=== PATIENT | female | born 1945 | race Asian ===

== ENCOUNTER 2024-02-16 17:17 | Inpatient (IN) | payer MEDICARE, OTHER ==
[~2024-02-16] VITALS: Ht 149.9 cm; Wt 47.6 kg
[2024-02-16 19:30] VITALS: BP 128/77; PULSE 86; RESP 18; TEMP 98.4; O2SAT 98
[2024-02-16] MEDS ORDERED: DEXTROSE 50%-WATER 25 GM/50 ML SYRINGE IVP PRN (20:15)
[2024-02-16] MEDS ORDERED: ALBUTEROL SULFATE HFA 90 MCG/PUFF 8 GM INHALER IH PRN (20:15)
[2024-02-16] MEDS: DOCUSATE SODIUM 100 MG CAPSULE PO SCH (21:00)
[2024-02-16] MEDS: ETHYL ALCOHOL 62% ANTISEPTIC NASAL SANITIZER 0.6 ML AMPUL NASAL SCH (21:42)
[2024-02-16] MEDS: MELATONIN 3 MG TABLET PO SCH (21:43)
[2024-02-16] MEDS: GuaiFENesin SR 600 MG ER TABLET PO SCH (21:43)
[2024-02-16] MEDS: CALCIUM CIT/VITAMIN D3 200 MG-250 UNITS[6.25MCG] TABLET PO SCH (21:43)
[2024-02-16] MEDS: SODIUM CHLORIDE 1 GM TABLET PO SCH (21:43)
[2024-02-16] MEDS: OXYGEN THERAPY IH SCH (23:21)
[2024-02-17] VITALS (8 sets, daily range): BP systolic 104–119; BP diastolic 61–75; PULSE 47–105; RESP 15–18; TEMP 98.3–98.4; O2SAT 94–98
[2024-02-17 00:50] LABS: GLUCOMETER DEV NAME(LOC) 2WR.1D; GLUCOSE,POINT OF CARE 160 MG/DL (70-110)
[2024-02-17 07:35] LABS: BASOPHILS % (AUTO) 1.2 % (0.0-2.0); EOSINOPHILS % (AUTO) 1.6 % (1.0-6.0); HEMATOCRIT 33.9 % (36-46); HEMOGLOBIN 11.2 g/dL (12.0-16.0); LYMPHOCYTES % (AUTO) 9.9 % (22.0-44.0); MEAN CORPUSCULAR HEMOGLOBIN 30.2 pg (26.0-34.0); MEAN CORPUSCULAR HGB CONC 33.1 G/dL (31.0-37.0); MEAN CORPUSCULAR VOLUME 91 fL (80-100); MONOCYTES # (AUTO) 0.8 K/uL (0.1-1.0); MONOCYTES % (AUTO) 8.3 % (2.0-9.0); PLATELET COUNT (AUTO) 354 K/uL (150-450); RED BLOOD CELL COUNT(AUTO) 3.72 MIL/uL (4.00-5.20); RED CELL DISTRIBUTION WIDTH 14.5 % (11.5-14.5); WHITE BLOOD COUNT (AUTO) 10.1 K/uL (4.5-11.0)
[2024-02-17 07:48] LABS: ALANINE AMINOTRANSFERASE 15 U/L (12-78); ALBUMIN 2.9 g/dL (3.4-5.0); ALKALINE PHOSPHATASE 62 U/L (46-116); ANION GAP 6 mmol/L (8-16); ASPARTATE AMINOTRANSFERASE 19 U/L (15-37); BILIRUBIN,TOTAL 0.5 mg/dL (0.1-1.0); CALCIUM, TOTAL 9.1 mg/dL (8.8-10.5); CARBON DIOXIDE 33 mmol/L (22-29); CHLORIDE 90 mmol/L (98-107); GLOMERULAR FILTR. RATE CALC > 60 mL/min (>60); GLUCOSE,RANDOM 111 mg/dL (70-110); POTASSIUM 3.9 mmol/L (3.5-5.1); SODIUM SERUM 128 mmol/L (136-145); TOTAL PROTEIN, SERUM 6.7 g/dL (6.4-8.2); UREA NITROGEN, BLOOD 14 mg/dL (7-18)
[2024-02-17 07:51] LABS: GLUCOMETER DEV NAME(LOC) 2WR.2B; GLUCOSE,POINT OF CARE 123 MG/DL (70-110)
[2024-02-17] MEDS: MetFORMIN HCL 500 MG TABLET PO SCH (08:17)
[2024-02-17] MEDS: ASPIRIN 81 MG CHEWABLE TABLET PO SCH (08:18)
[2024-02-17] MEDS: FUROSEMIDE 20 MG TABLET PO SCH (08:19)
[2024-02-17] MEDS: ATORVASTATIN CALCIUM 10 MG TABLET PO SCH (08:19)
[2024-02-17] MEDS: AmLODIPine BESYLATE 5 MG TABLET PO SCH (08:20)
[2024-02-17] MEDS: ENOXAPARIN SODIUM 40 MG/0.4 ML PF SYRINGE SQ SCH (08:21)
[2024-02-17] MEDS: PNEUMOCOCCAL VACCINE POLYVALENT 0.5 ML SYRINGE [PPSV23] IM. ONE (08:24)
[2024-02-17] MEDS: VIT A,C & E/LUTEIN/MINERALS TABLET PO SCH (08:39)
[2024-02-17] MEDS: LOSARTAN POTASSIUM 50 MG TABLET PO SCH (09:00)
[2024-02-17] MEDS: ATENOLOL 50 MG TABLET PO SCH (09:00)
[2024-02-17] MEDS ORDERED: MIDODRINE HCL 2.5 MG TABLET PO PRN (12:00)
[2024-02-17 13:20] LABS: GLUCOMETER DEV NAME(LOC) 2WR.2B; GLUCOSE,POINT OF CARE 94 MG/DL (70-110)
[2024-02-17] MEDS: ALBUTEROL SULFATE/IPRATROPIUM 100-20 MCG/SPRAY 4 GM INHALER IH SCH (15:16)
[2024-02-17 18:45] LABS: GLUCOMETER DEV NAME(LOC) 2WR.2B; GLUCOSE,POINT OF CARE 115 MG/DL (70-110)
[2024-02-17] MEDS: BUDESONIDE 0.5 MG/2 ML NEB SOLUTION NEB SCH (20:39)
[2024-02-17] MEDS: GuaiFENesin SR 600 MG ER TABLET PO SCH (21:18)
[2024-02-17 23:06] LABS: GLUCOMETER DEV NAME(LOC) 2WR.2B; GLUCOSE,POINT OF CARE 118 MG/DL (70-110)
[2024-02-18 06:51] LABS: GLUCOMETER DEV NAME(LOC) 2WR.1D; GLUCOSE,POINT OF CARE 129 MG/DL (70-110)
[2024-02-18 08:05] VITALS: BP 123/76; PULSE 104; RESP 18; TEMP 98; O2SAT 92
[2024-02-18 09:09] VITALS: PULSE 99; RESP 16; O2SAT 98
[2024-02-18 09:10] VITALS: PULSE 99; RESP 16; O2SAT 98
[2024-02-18 09:42] LABS: ANION GAP 2 mmol/L (8-16); CALCIUM, TOTAL 9.5 mg/dL (8.8-10.5); CARBON DIOXIDE 35 mmol/L (22-29); CHLORIDE 93 mmol/L (98-107); CREATININE 0.47 mg/dL (0.60-1.30); GLOMERULAR FILTR. RATE CALC > 60 mL/min (>60); GLUCOSE,RANDOM 189 mg/dL (70-110); POTASSIUM 3.9 mmol/L (3.5-5.1); SODIUM SERUM 130 mmol/L (136-145); UREA NITROGEN, BLOOD 12 mg/dL (7-18)
[2024-02-18 12:10] LABS: GLUCOMETER DEV NAME(LOC) 2WR.1D; GLUCOSE,POINT OF CARE 103 MG/DL (70-110)
[2024-02-18 12:30] VITALS: BP 113/70; PULSE 88; RESP 18; TEMP 98.6; O2SAT 98
[2024-02-18 17:20] LABS: GLUCOMETER DEV NAME(LOC) 2WR.1D; GLUCOSE,POINT OF CARE 109 MG/DL (70-110)
[2024-02-18 21:00] VITALS: BP 122/73; PULSE 91; RESP 18; TEMP 98.1; O2SAT 95
[2024-02-18 22:30] VITALS: PULSE 94; RESP 16; O2SAT 96
[2024-02-18 22:30] LABS: GLUCOMETER DEV NAME(LOC) 2WR.1D; GLUCOSE,POINT OF CARE 105 MG/DL (70-110)
[2024-02-19] VITALS (11 sets, daily range): BP systolic 99–129; BP diastolic 60–78; PULSE 84–112; RESP 16–18; TEMP 98.2–98.6; O2SAT 92–98
[2024-02-19 07:16] LABS: GLUCOMETER DEV NAME(LOC) 2WR.2B; GLUCOSE,POINT OF CARE 108 MG/DL (70-110)
[2024-02-19 12:46] LABS: APPEARANCE,URINE TURBID (CLEAR); BILIRUBIN,URINE NEGATIVE (NEGATIVE); COLOR,URINE YELLOW (YELLOW); GLUCOSE, URINE (UA) NEGATIVE (NEGATIVE); KETONES,URINE 40-60 mg/dL (NEGATIVE); LEUKOCYTE ESTERASE ,URINE LARGE (NEGATIVE); NITRATE,URINE NEGATIVE (NEGATIVE); OCCULT BLOOD,URINE SMALL (NEGATIVE); PH,URINE 6.5 (5.0-8.0); PROTEIN,URINE 30-70 mg/dL (NEGATIVE); SPECIFIC GRAVITIY, URINE 1.022 (1.003-1.030); UROBILINOGEN,URINE <=1.0 mg/dL (<=1.0)
[2024-02-19 13:07] LABS: BACTERIA,URINE Many /HPF (None Seen); SQUAMOUS EPITHELIAL CELL,UR Moderate /LPF (None Seen); WBC,URINE >100 /HPF (0-5)
[2024-02-19 17:21] LABS: GLUCOMETER DEV NAME(LOC) 2WR.2B; GLUCOSE,POINT OF CARE 103 MG/DL (70-110)
[2024-02-19] MEDS ORDERED: ALBUTEROL SULFATE 2.5 MG/0.5 ML NEB SOLUTION NEB SCH (23:00)
[2024-02-19] MEDS ORDERED: IPRATROPIUM BROMIDE 0.5 MG/2.5 ML NEB SOLUTION NEB SCH (23:00)
[2024-02-20 01:00] VITALS: O2SAT 96
[2024-02-20 06:56] LABS: GLUCOMETER DEV NAME(LOC) 2WR.1D; GLUCOSE,POINT OF CARE 124 MG/DL (70-110)
[2024-02-20 08:00] VITALS: BP 137/72; PULSE 106; RESP 18; TEMP 98.6; O2SAT 94
[2024-02-20] MEDS: LOSARTAN POTASSIUM 50 MG TABLET PO SCH (08:39)
[2024-02-20 08:56] VITALS: PULSE 98; RESP 18; O2SAT 95
[2024-02-20 09:11] VITALS: PULSE 99; RESP 18; O2SAT 97
[2024-02-20 17:11] LABS: GLUCOMETER DEV NAME(LOC) 2WR.1D; GLUCOSE,POINT OF CARE 136 MG/DL (70-110)
[2024-02-20] MEDS ORDERED: 0.9% SODIUM CHLORIDE 5 ML NEB SOLUTION NEB ONE (19:44)
[2024-02-20 19:45] VITALS: PULSE 105; RESP 22; O2SAT 94
[2024-02-20 20:00] VITALS: BP 105/56; PULSE 103; PULSE 106; RESP 18; RESP 20; TEMP 98; O2SAT 95; O2SAT 98
[2024-02-21] VITALS (7 sets, daily range): BP systolic 118–121; BP diastolic 65–71; PULSE 93–104; RESP 16–20; TEMP 97.8–99.1; O2SAT 93–96
[2024-02-21 07:11] LABS: GLUCOMETER DEV NAME(LOC) 2WR.2B; GLUCOSE,POINT OF CARE 151 MG/DL (70-110)
[2024-02-21] MEDS: INSULIN LISPRO 100 UNITS/ML SQ PRN (08:26)
[2024-02-21 12:14] LABS: COVID AG,FIA SOURCE NASAL SWAB
[2024-02-21 12:52] LABS: SARS-COV2 (COVID) ANTIGEN,FIA Negative (Negative)
[2024-02-21 17:15] LABS: GLUCOMETER DEV NAME(LOC) 2WR.1D; GLUCOSE,POINT OF CARE 150 MG/DL (70-110)
[2024-02-21] MEDS: NITROFURANTOIN MONOHYD/M-CRYST 100 MG CAPSULE [MACROBID] PO SCH (20:54)
[2024-02-21] MEDS: ACETAMINOPHEN 325 MG TABLET PO PRN (20:55)
[2024-02-22] VITALS (8 sets, daily range): BP systolic 104–138; BP diastolic 60–80; PULSE 88–104; RESP 18–20; TEMP 97.5–98.2; O2SAT 93–98
[2024-02-22 07:05] LABS: GLUCOMETER DEV NAME(LOC) 2WR.2B; GLUCOSE,POINT OF CARE 115 MG/DL (70-110)
[2024-02-22 09:28] LABS: BASOPHILS % (AUTO) 0.2 % (0.0-2.0); EOSINOPHILS % (AUTO) 0.8 % (1.0-6.0); HEMATOCRIT 29.4 % (36-46); HEMOGLOBIN 9.8 g/dL (12.0-16.0); LYMPHOCYTES # (AUTO) 0.7 K/uL (1.0-4.8); LYMPHOCYTES % (AUTO) 5.8 % (22.0-44.0); MEAN CORPUSCULAR HEMOGLOBIN 30.3 pg (26.0-34.0); MEAN CORPUSCULAR HGB CONC 33.3 G/dL (31.0-37.0); MEAN CORPUSCULAR VOLUME 91 fL (80-100); MONOCYTES # (AUTO) 0.7 K/uL (0.1-1.0); MONOCYTES % (AUTO) 6.2 % (2.0-9.0); PLATELET COUNT (AUTO) 273 K/uL (150-450); RED BLOOD CELL COUNT(AUTO) 3.23 MIL/uL (4.00-5.20); RED CELL DISTRIBUTION WIDTH 15.1 % (11.5-14.5); WHITE BLOOD COUNT (AUTO) 11.5 K/uL (4.5-11.0)
[2024-02-22 09:46] LABS: ANION GAP 8 mmol/L (8-16); CALCIUM, TOTAL 9.1 mg/dL (8.8-10.5); CARBON DIOXIDE 30 mmol/L (22-29); CHLORIDE 91 mmol/L (98-107); CREATININE 0.54 mg/dL (0.60-1.30); GLOMERULAR FILTR. RATE CALC > 60 mL/min (>60); GLUCOSE,RANDOM 123 mg/dL (70-110); POTASSIUM 3.6 mmol/L (3.5-5.1); SODIUM SERUM 129 mmol/L (136-145); UREA NITROGEN, BLOOD 14 mg/dL (7-18)
[2024-02-22 11:00] LABS: COVID AG,FIA SOURCE NASAL SWAB
[2024-02-22 11:51] LABS: SARS-COV2 (COVID) ANTIGEN,FIA Negative (Negative)
[2024-02-22 20:01] LABS: GLUCOMETER DEV NAME(LOC) 2WR.2B; GLUCOSE,POINT OF CARE 123 MG/DL (70-110)
[2024-02-23] VITALS (7 sets, daily range): BP systolic 134–136; BP diastolic 81–98; PULSE 96–113; RESP 18–22; TEMP 98.1; O2SAT 90–98
[2024-02-23 07:06] LABS: GLUCOMETER DEV NAME(LOC) 2WR.2B; GLUCOSE,POINT OF CARE 127 MG/DL (70-110)
[2024-02-23 18:51] LABS: GLUCOMETER DEV NAME(LOC) 2WR.2B; GLUCOSE,POINT OF CARE 116 MG/DL (70-110)
[2024-02-24] VITALS (12 sets, daily range): BP systolic 117–151; BP diastolic 71–93; PULSE 95–113; RESP 18–20; TEMP 97.9–98.2; O2SAT 95–100
[2024-02-24 06:40] LABS: GLUCOMETER DEV NAME(LOC) 2WR.2B; GLUCOSE,POINT OF CARE 121 MG/DL (70-110)
[2024-02-24] MEDS: FUROSEMIDE 20 MG TABLET PO SCH (11:18)
[2024-02-24 17:20] LABS: GLUCOMETER DEV NAME(LOC) 2WR.2B; GLUCOSE,POINT OF CARE 129 MG/DL (70-110)
[2024-02-24] MEDS: HYDROCODONE/CHLORPHEN POLIS 10-8 MG/5 ML ORAL.SYG PO SCH (20:46)
[2024-02-25] VITALS (8 sets, daily range): BP systolic 118–135; BP diastolic 70–73; PULSE 102–107; RESP 18–20; TEMP 97.2–97.8; O2SAT 94–98
[2024-02-25 06:51] LABS: GLUCOMETER DEV NAME(LOC) 2WR.1D; GLUCOSE,POINT OF CARE 122 MG/DL (70-110)
[2024-02-25 18:36] LABS: GLUCOMETER DEV NAME(LOC) 2WR.1D; GLUCOSE,POINT OF CARE 117 MG/DL (70-110)
[2024-02-26] VITALS (9 sets, daily range): BP systolic 135–148; BP diastolic 80–85; PULSE 101–108; RESP 18–20; TEMP 98.2–98.6; O2SAT 92–98
[2024-02-26 06:51] LABS: GLUCOMETER DEV NAME(LOC) 2WR.1D; GLUCOSE,POINT OF CARE 138 MG/DL (70-110)
[2024-02-26] MEDS: MULTIVITAMINS WITH MINERALS, THERAPEUTIC TABLET PO SCH (07:53)
[2024-02-26] MEDS: ASCORBIC ACID 500 MG TABLET PO SCH (07:54)
[2024-02-26] MEDS: ZINC SULFATE 220 MG CAPSULE PO SCH (07:54)
[2024-02-26] MEDS: LIDOCAINE 5% TRANSDERMAL PATCH TD SCH (10:54)
[2024-02-26 17:30] LABS: GLUCOMETER DEV NAME(LOC) 2WR.2B; GLUCOSE,POINT OF CARE 102 MG/DL (70-110)
[2024-02-26] MEDS: DOCUSATE SODIUM 100 MG CAPSULE PO PRN (20:09)
[2024-02-26] MEDS: -LIDODERM PATCH NOTE- MISC SCH (20:10)
[2024-02-27] VITALS (11 sets, daily range): BP systolic 134–145; BP diastolic 76–80; PULSE 100–110; RESP 18–20; TEMP 97.8–98.1; O2SAT 95–99
[2024-02-27 07:15] LABS: GLUCOMETER DEV NAME(LOC) 2WR.1D; GLUCOSE,POINT OF CARE 125 MG/DL (70-110)
[2024-02-27] MEDS: FUROSEMIDE 20 MG TABLET PO SCH (08:31)
[2024-02-27] MEDS: LIDOCAINE 5% TRANSDERMAL PATCH TD SCH (08:41)
[2024-02-27 17:55] LABS: GLUCOMETER DEV NAME(LOC) 2WR.2B; GLUCOSE,POINT OF CARE 87 MG/DL (70-110)
[2024-02-28] VITALS (10 sets, daily range): BP systolic 118–139; BP diastolic 77–78; PULSE 100–107; RESP 17–20; TEMP 97.8–98.1; O2SAT 95–99
[2024-02-28 06:56] LABS: GLUCOMETER DEV NAME(LOC) 2WR.2B; GLUCOSE,POINT OF CARE 128 MG/DL (70-110)
[2024-02-28 07:18] LABS: BASOPHILS % (AUTO) 0.5 % (0.0-2.0); HEMATOCRIT 29.7 % (36-46); HEMOGLOBIN 9.8 g/dL (12.0-16.0); LYMPHOCYTES % (AUTO) 8.4 % (22.0-44.0); MEAN CORPUSCULAR HEMOGLOBIN 29.8 pg (26.0-34.0); MEAN CORPUSCULAR VOLUME 90 fL (80-100); MONOCYTES % (AUTO) 8.5 % (2.0-9.0); NEUTROPHILS # (AUTO) 9.3 K/uL (1.8-7.7); NEUTROPHILS % (AUTO) 81.6 % (40.0-70.0); PLATELET COUNT (AUTO) 326 K/uL (150-450); RED BLOOD CELL COUNT(AUTO) 3.29 MIL/uL (4.00-5.20); RED CELL DISTRIBUTION WIDTH 15.4 % (11.5-14.5); WHITE BLOOD COUNT (AUTO) 11.4 K/uL (4.5-11.0)
[2024-02-28 08:10] LABS: ALANINE AMINOTRANSFERASE 13 U/L (12-78); ALBUMIN 2.2 g/dL (3.4-5.0); ALKALINE PHOSPHATASE 77 U/L (46-116); ANION GAP 2 mmol/L (8-16); ASPARTATE AMINOTRANSFERASE 17 U/L (15-37); BILIRUBIN,TOTAL 0.5 mg/dL (0.1-1.0); CALCIUM, TOTAL 8.7 mg/dL (8.8-10.5); CARBON DIOXIDE 32 mmol/L (22-29); CHLORIDE 89 mmol/L (98-107); CREATININE 0.33 mg/dL (0.60-1.30); GLOMERULAR FILTR. RATE CALC > 60 mL/min (>60); GLUCOSE,RANDOM 125 mg/dL (70-110); POTASSIUM 3.8 mmol/L (3.5-5.1); TOTAL PROTEIN, SERUM 6.6 g/dL (6.4-8.2); UREA NITROGEN, BLOOD 10 mg/dL (7-18)
[2024-02-28 08:17] LABS: SODIUM SERUM 123 mmol/L (136-145)
[2024-02-28 10:52] LABS: APPEARANCE,URINE TURBID (CLEAR); BILIRUBIN,URINE NEGATIVE (NEGATIVE); COLOR,URINE YELLOW (YELLOW); GLUCOSE, URINE (UA) NEGATIVE (NEGATIVE); LEUKOCYTE ESTERASE ,URINE LARGE (NEGATIVE); NITRATE,URINE POSITIVE (NEGATIVE); OCCULT BLOOD,URINE SMALL (NEGATIVE); PROTEIN,URINE 30-70 mg/dL (NEGATIVE); SPECIFIC GRAVITIY, URINE 1.013 (1.003-1.030); UROBILINOGEN,URINE <=1.0 mg/dL (<=1.0)
[2024-02-28 10:58] LABS: BACTERIA,URINE Many /HPF (None Seen); WBC,URINE >100 /HPF (0-5)
[2024-02-28 11:04] LABS: OSMOLALITY,URINE 420 mOsm/kg (50-1500)
[2024-02-28 11:59] LABS: SODIUM,URINE RANDOM 70 mmol/l (20-110)
[2024-02-28 15:34] LABS: ANION GAP 1 mmol/L (8-16); CARBON DIOXIDE 34 mmol/L (22-29); CHLORIDE 88 mmol/L (98-107); CREATININE 0.38 mg/dL (0.60-1.30); GLOMERULAR FILTR. RATE CALC > 60 mL/min (>60); GLUCOSE,RANDOM 116 mg/dL (70-110); POTASSIUM 4.2 mmol/L (3.5-5.1); UREA NITROGEN, BLOOD 14 mg/dL (7-18)
[2024-02-28 15:37] LABS: MAGNESIUM 1.7 mg/dL (1.80-2.40); PHOSPHORUS 3.6 mg/dL (2.5-4.9)
[2024-02-28 15:59] LABS: SODIUM SERUM 123 mmol/L (136-145)
[2024-02-28 18:00] LABS: GLUCOMETER DEV NAME(LOC) 2WR.1D; GLUCOSE,POINT OF CARE 96 MG/DL (70-110)
[2024-02-28] MEDS: CefTRIAXone 1 GM/DEXTROSE 50 ML IV SCH (18:12)
[2024-02-28] MEDS: SODIUM CHLORIDE 1 GM TABLET PO SCH (20:00)
[2024-02-29] VITALS (7 sets, daily range): BP systolic 116–123; BP diastolic 69–77; PULSE 95–104; RESP 17–19; TEMP 98.1–98.2; O2SAT 95–98
[2024-02-29] MEDS ORDERED: VIT1TAB.9 PO (04:59)
[2024-02-29] MEDS ORDERED: CALC-840 PO (04:59)
[2024-02-29] MEDS ORDERED: IPRA4AER IH (04:59)
[2024-02-29] MEDS ORDERED: ATEN-72 PO (04:59)
[2024-02-29] MEDS ORDERED: ATOR10TA PO (04:59)
[2024-02-29] MEDS ORDERED: ASPI81TA39 PO (04:59)
[2024-02-29] MEDS ORDERED: LOSA-382 PO (04:59)
[2024-02-29] MEDS: DOCUSATE SODIUM 283 MG/5 ML MINI-ENEMA PR PRN (05:18)
[2024-02-29 06:56] LABS: GLUCOMETER DEV NAME(LOC) 2WR.1D; GLUCOSE,POINT OF CARE 120 MG/DL (70-110)
[2024-02-29 08:27] LABS: ANION GAP 3 mmol/L (8-16); CALCIUM, TOTAL 8.6 mg/dL (8.8-10.5); CARBON DIOXIDE 32 mmol/L (22-29); CHLORIDE 89 mmol/L (98-107); CREATININE 0.29 mg/dL (0.60-1.30); GLOMERULAR FILTR. RATE CALC > 60 mL/min (>60); GLUCOSE,RANDOM 108 mg/dL (70-110); POTASSIUM 3.8 mmol/L (3.5-5.1); THYROID STIMULATING HORMONE 0.58 uIU/mL (0.36-3.74); UREA NITROGEN, BLOOD 9 mg/dL (7-18)
[2024-02-29 08:42] LABS: SODIUM SERUM 124 mmol/L (136-145)
[2024-02-29] MEDS: 0.9% SODIUM CHLORIDE 10 ML SYRINGE IVP SCH (08:52)
[2024-02-29] MEDS: DOCUSATE SODIUM 100 MG CAPSULE PO SCH (08:53)
[2024-02-29] MEDS ORDERED: TOLVAPTAN 15 MG TABLET PO SCH (09:00)
[2024-02-29] MEDS: TOLVAPTAN 15 MG TABLET PO ONE (09:18)
[2024-02-29 16:45] LABS: GLUCOMETER DEV NAME(LOC) 2WR.1D; GLUCOSE,POINT OF CARE 164 MG/DL (70-110)
[2024-02-29 17:46] LABS: ANION GAP 2 mmol/L (8-16); CALCIUM, TOTAL 8.9 mg/dL (8.8-10.5); CARBON DIOXIDE 34 mmol/L (22-29); CHLORIDE 98 mmol/L (98-107); CREATININE 0.41 mg/dL (0.60-1.30); GLOMERULAR FILTR. RATE CALC > 60 mL/min (>60); GLUCOSE,RANDOM 120 mg/dL (70-110); SODIUM SERUM 134 mmol/L (136-145); UREA NITROGEN, BLOOD 11 mg/dL (7-18)
[2024-03-01 07:10] LABS: GLUCOMETER DEV NAME(LOC) 2WR.2B; GLUCOSE,POINT OF CARE 122 MG/DL (70-110)
[2024-03-01 08:02] VITALS: BP 143/79; PULSE 106; RESP 19; TEMP 98; O2SAT 96
[2024-03-01 08:46] LABS: CALCIUM, TOTAL 9.1 mg/dL (8.8-10.5); CHLORIDE 95 mmol/L (98-107); CREATININE 0.38 mg/dL (0.60-1.30); GLOMERULAR FILTR. RATE CALC > 60 mL/min (>60); GLUCOSE,RANDOM 131 mg/dL (70-110); UREA NITROGEN, BLOOD 10 mg/dL (7-18)
[2024-03-01 08:54] LABS: ANION GAP 1 mmol/L (8-16); CARBON DIOXIDE 34 mmol/L (22-29); SODIUM SERUM 130 mmol/L (136-145)
[2024-03-01 08:57] VITALS: PULSE 114; RESP 18; O2SAT 96
[2024-03-01] MEDS: LOSARTAN POTASSIUM 50 MG TABLET PO SCH (09:05)
[2024-03-01 09:10] VITALS: PULSE 110; RESP 18; O2SAT 97
[2024-03-01 09:27] LABS: BASOPHILS % (AUTO) 0.4 % (0.0-2.0); EOSINOPHILS % (AUTO) 0.7 % (1.0-6.0); HEMATOCRIT 31.2 % (36-46); HEMOGLOBIN 10.2 g/dL (12.0-16.0); LYMPHOCYTES # (AUTO) 1.2 K/uL (1.0-4.8); LYMPHOCYTES % (AUTO) 8.3 % (22.0-44.0); MEAN CORPUSCULAR HEMOGLOBIN 29.9 pg (26.0-34.0); MEAN CORPUSCULAR HGB CONC 32.9 G/dL (31.0-37.0); MEAN CORPUSCULAR VOLUME 91 fL (80-100); MONOCYTES % (AUTO) 6.8 % (2.0-9.0); NEUTROPHILS # (AUTO) 12.1 K/uL (1.8-7.7); NEUTROPHILS % (AUTO) 83.8 % (40.0-70.0); PLATELET COUNT (AUTO) 422 K/uL (150-450); RED BLOOD CELL COUNT(AUTO) 3.42 MIL/uL (4.00-5.20); RED CELL DISTRIBUTION WIDTH 15.3 % (11.5-14.5); WHITE BLOOD COUNT (AUTO) 14.4 K/uL (4.5-11.0)
[2024-03-01 17:15] LABS: GLUCOMETER DEV NAME(LOC) 2WR.1D; GLUCOSE,POINT OF CARE 115 MG/DL (70-110)
[2024-03-01 19:20] VITALS: PULSE 100; RESP 18; O2SAT 96
[2024-03-01 20:10] VITALS: BP 149/94; PULSE 104; RESP 18; TEMP 98.7; O2SAT 95
[2024-03-01 22:51] VITALS: O2SAT 96
[2024-03-02] VITALS (9 sets, daily range): BP systolic 122–159; BP diastolic 68–88; PULSE 95–105; RESP 18–19; TEMP 97.9–98.1; O2SAT 96–99
[2024-03-02 06:46] LABS: GLUCOMETER DEV NAME(LOC) 2WR.1D; GLUCOSE,POINT OF CARE 112 MG/DL (70-110)
[2024-03-02 09:48] LABS: ANION GAP 5 mmol/L (8-16); CALCIUM, TOTAL 8.9 mg/dL (8.8-10.5); CARBON DIOXIDE 32 mmol/L (22-29); CHLORIDE 91 mmol/L (98-107); CREATININE 0.47 mg/dL (0.60-1.30); GLOMERULAR FILTR. RATE CALC > 60 mL/min (>60); GLUCOSE,RANDOM 185 mg/dL (70-110); PHOSPHORUS 2.8 mg/dL (2.5-4.9); POTASSIUM 4.1 mmol/L (3.5-5.1); SODIUM SERUM 128 mmol/L (136-145); UREA NITROGEN, BLOOD 13 mg/dL (7-18)
[2024-03-02] MEDS: MAGNESIUM OXIDE 400 MG TABLET PO ONE (10:19)
[2024-03-02 17:40] LABS: GLUCOMETER DEV NAME(LOC) 2WR.2B; GLUCOSE,POINT OF CARE 137 MG/DL (70-110)
[2024-03-02] MEDS: *CLINICAL-MEROPENEM DOSING CLINICAL ONE (18:12)
[2024-03-02] MEDS: MEROPENEM 1 GM in SODIUM CHLORIDE 0.9% 100 ML IV SCH (20:15)
[2024-03-03 06:50] LABS: GLUCOMETER DEV NAME(LOC) 2WR.2B; GLUCOSE,POINT OF CARE 127 MG/DL (70-110)
[2024-03-03 08:11] VITALS: BP 125/83; PULSE 111; RESP 18; TEMP 98.1; O2SAT 95
[2024-03-03 08:58] LABS: ANION GAP 8 mmol/L (8-16); CALCIUM, TOTAL 8.4 mg/dL (8.8-10.5); CARBON DIOXIDE 28 mmol/L (22-29); CHLORIDE 89 mmol/L (98-107); CREATININE 0.35 mg/dL (0.60-1.30); GLOMERULAR FILTR. RATE CALC > 60 mL/min (>60); GLUCOSE,RANDOM 154 mg/dL (70-110); PHOSPHORUS 3.3 mg/dL (2.5-4.9); POTASSIUM 4.1 mmol/L (3.5-5.1); SODIUM SERUM 125 mmol/L (136-145); UREA NITROGEN, BLOOD 10 mg/dL (7-18)
[2024-03-03 09:18] LABS: BASOPHILS % (AUTO) 0.8 % (0.0-2.0); EOSINOPHILS % (AUTO) 0.5 % (1.0-6.0); HEMATOCRIT 31.6 % (36-46); HEMOGLOBIN 10.5 g/dL (12.0-16.0); LYMPHOCYTES # (AUTO) 1.2 K/uL (1.0-4.8); LYMPHOCYTES % (AUTO) 8.6 % (22.0-44.0); MEAN CORPUSCULAR HEMOGLOBIN 29.9 pg (26.0-34.0); MEAN CORPUSCULAR HGB CONC 33.1 G/dL (31.0-37.0); MEAN CORPUSCULAR VOLUME 90 fL (80-100); MONOCYTES # (AUTO) 0.9 K/uL (0.1-1.0); MONOCYTES % (AUTO) 6.6 % (2.0-9.0); NEUTROPHILS # (AUTO) 11.5 K/uL (1.8-7.7); NEUTROPHILS % (AUTO) 83.5 % (40.0-70.0); PLATELET COUNT (AUTO) 454 K/uL (150-450); RED CELL DISTRIBUTION WIDTH 15.6 % (11.5-14.5); WHITE BLOOD COUNT (AUTO) 13.8 K/uL (4.5-11.0)
[2024-03-03] MEDS: MAGNESIUM SULFATE 4 GM/WATER 100 ML IV ONE (13:28)
[2024-03-03] MEDS: TOLVAPTAN 15 MG TABLET PO ONE (13:41)
[2024-03-03 17:40] LABS: GLUCOMETER DEV NAME(LOC) 2WR.2B; GLUCOSE,POINT OF CARE 116 MG/DL (70-110)
[2024-03-03 17:57] VITALS: O2SAT 95
[2024-03-03 19:54] VITALS: PULSE 98; RESP 18; O2SAT 95
[2024-03-03 20:02] VITALS: BP 135/80; PULSE 135; RESP 18; TEMP 97.9; O2SAT 95
[2024-03-03 20:09] VITALS: PULSE 95; RESP 20; O2SAT 97
[2024-03-03 21:27] VITALS: O2SAT 95
[2024-03-04] VITALS (8 sets, daily range): BP systolic 138–155; BP diastolic 81–82; PULSE 91–103; RESP 16–20; TEMP 97.7–97.8; O2SAT 94–100
[2024-03-04 06:51] LABS: GLUCOMETER DEV NAME(LOC) 2WR.1D; GLUCOSE,POINT OF CARE 115 MG/DL (70-110)
[2024-03-04 08:01] LABS: ANION GAP 8 mmol/L (8-16); CALCIUM, TOTAL 8.5 mg/dL (8.8-10.5); CARBON DIOXIDE 29 mmol/L (22-29); CHLORIDE 97 mmol/L (98-107); CREATININE 0.39 mg/dL (0.60-1.30); GLOMERULAR FILTR. RATE CALC > 60 mL/min (>60); GLUCOSE,RANDOM 110 mg/dL (70-110); PHOSPHORUS 3.3 mg/dL (2.5-4.9); POTASSIUM 3.9 mmol/L (3.5-5.1); SODIUM SERUM 134 mmol/L (136-145); UREA NITROGEN, BLOOD 13 mg/dL (7-18)
[2024-03-04 18:16] LABS: GLUCOMETER DEV NAME(LOC) 2WR.2B; GLUCOSE,POINT OF CARE 111 MG/DL (70-110)
[2024-03-05] VITALS (13 sets, daily range): BP systolic 125–155; BP diastolic 77–89; PULSE 80–99; RESP 18–20; TEMP 97.7–97.8; O2SAT 95–100
[2024-03-05] MEDS ORDERED: SODIUM CHLORIDE 0.9% 100 ML ONE (11:43)
[2024-03-05] MEDS ORDERED: SODIUM CHLORIDE 0.9% 250 ML IV ONE (11:44)
[2024-03-05 17:16] LABS: GLUCOMETER DEV NAME(LOC) 2WR.2B; GLUCOSE,POINT OF CARE 103 MG/DL (70-110)
[2024-03-05] MEDS ORDERED: DOCU-385 PO (23:56)
[2024-03-06] VITALS (9 sets, daily range): BP systolic 128–150; BP diastolic 78–88; PULSE 92–105; RESP 18–20; TEMP 97.8–98.1; O2SAT 93–99
[2024-03-06 07:00] LABS: GLUCOMETER DEV NAME(LOC) 2WR.1D; GLUCOSE,POINT OF CARE 118 MG/DL (70-110)
[2024-03-06 07:18] LABS: BASOPHILS % (AUTO) 1.3 % (0.0-2.0); EOSINOPHILS % (AUTO) 0.7 % (1.0-6.0); HEMATOCRIT 31.1 % (36-46); HEMOGLOBIN 10.1 g/dL (12.0-16.0); LYMPHOCYTES # (AUTO) 1.5 K/uL (1.0-4.8); LYMPHOCYTES % (AUTO) 13.6 % (22.0-44.0); MEAN CORPUSCULAR HEMOGLOBIN 29.4 pg (26.0-34.0); MEAN CORPUSCULAR HGB CONC 32.4 G/dL (31.0-37.0); MEAN CORPUSCULAR VOLUME 91 fL (80-100); MONOCYTES # (AUTO) 0.8 K/uL (0.1-1.0); MONOCYTES % (AUTO) 7.7 % (2.0-9.0); NEUTROPHILS # (AUTO) 8.3 K/uL (1.8-7.7); NEUTROPHILS % (AUTO) 76.7 % (40.0-70.0); PLATELET COUNT (AUTO) 489 K/uL (150-450); RED BLOOD CELL COUNT(AUTO) 3.42 MIL/uL (4.00-5.20); RED CELL DISTRIBUTION WIDTH 15.6 % (11.5-14.5); WHITE BLOOD COUNT (AUTO) 10.8 K/uL (4.5-11.0)
[2024-03-06 07:40] LABS: ANION GAP 7 mmol/L (8-16); CALCIUM, TOTAL 8.6 mg/dL (8.8-10.5); CARBON DIOXIDE 30 mmol/L (22-29); CHLORIDE 96 mmol/L (98-107); CREATININE 0.45 mg/dL (0.60-1.30); GLOMERULAR FILTR. RATE CALC > 60 mL/min (>60); GLUCOSE,RANDOM 111 mg/dL (70-110); PHOSPHORUS 2.3 mg/dL (2.5-4.9); POTASSIUM 3.8 mmol/L (3.5-5.1); SODIUM SERUM 133 mmol/L (136-145); UREA NITROGEN, BLOOD 16 mg/dL (7-18)
[2024-03-06 17:50] LABS: GLUCOMETER DEV NAME(LOC) 2WR.2B; GLUCOSE,POINT OF CARE 124 MG/DL (70-110)
[2024-03-07] VITALS (8 sets, daily range): BP systolic 143–156; BP diastolic 85–89; PULSE 90–96; RESP 19–22; TEMP 97.2–97.6; O2SAT 82–98
[2024-03-07 07:00] LABS: GLUCOMETER DEV NAME(LOC) 2WR.2B; GLUCOSE,POINT OF CARE 110 MG/DL (70-110)
[2024-03-07 17:16] LABS: GLUCOMETER DEV NAME(LOC) 2WR.1D; GLUCOSE,POINT OF CARE 98 MG/DL (70-110)
[2024-03-08 06:51] LABS: GLUCOMETER DEV NAME(LOC) 2WR.2B; GLUCOSE,POINT OF CARE 102 MG/DL (70-110)
[2024-03-08 07:49] LABS: EOSINOPHILS % (AUTO) 0.6 % (1.0-6.0); HEMATOCRIT 31.5 % (36-46); HEMOGLOBIN 10.4 g/dL (12.0-16.0); LYMPHOCYTES # (AUTO) 1.5 K/uL (1.0-4.8); LYMPHOCYTES % (AUTO) 14.4 % (22.0-44.0); MEAN CORPUSCULAR HEMOGLOBIN 30.2 pg (26.0-34.0); MEAN CORPUSCULAR HGB CONC 33.1 G/dL (31.0-37.0); MEAN CORPUSCULAR VOLUME 91 fL (80-100); MONOCYTES # (AUTO) 0.6 K/uL (0.1-1.0); MONOCYTES % (AUTO) 5.3 % (2.0-9.0); NEUTROPHILS # (AUTO) 8.6 K/uL (1.8-7.7); NEUTROPHILS % (AUTO) 79.7 % (40.0-70.0); PLATELET COUNT (AUTO) 488 K/uL (150-450); RED BLOOD CELL COUNT(AUTO) 3.45 MIL/uL (4.00-5.20); WHITE BLOOD COUNT (AUTO) 10.7 K/uL (4.5-11.0)
[2024-03-08 08:00] VITALS: BP 156/90; PULSE 93; RESP 19; TEMP 97.7; O2SAT 97
[2024-03-08 08:07] LABS: ANION GAP 7 mmol/L (8-16); CALCIUM, TOTAL 8.4 mg/dL (8.8-10.5); CARBON DIOXIDE 29 mmol/L (22-29); CHLORIDE 94 mmol/L (98-107); CREATININE 0.38 mg/dL (0.60-1.30); GLOMERULAR FILTR. RATE CALC > 60 mL/min (>60); GLUCOSE,RANDOM 99 mg/dL (70-110); POTASSIUM 3.5 mmol/L (3.5-5.1); SODIUM SERUM 130 mmol/L (136-145); UREA NITROGEN, BLOOD 12 mg/dL (7-18)
[2024-03-08 08:10] LABS: MAGNESIUM 1.8 mg/dL (1.80-2.40); PHOSPHORUS 2.7 mg/dL (2.5-4.9)
[2024-03-08 08:30] VITALS: BP 120/73; PULSE 93; RESP 19; O2SAT 97
[2024-03-08 08:58] VITALS: PULSE 96; RESP 18; O2SAT 95
[2024-03-08 09:13] VITALS: PULSE 94; RESP 18; O2SAT 99
[2024-03-08 09:18] VITALS: O2SAT 82; O2SAT 88
[2024-03-08] MEDS ORDERED: SODIUM CL IRRIG SOLN BOTTLE 250 ML IRRIG ONE (09:47)
[2024-03-08] MEDS ORDERED: FLUT1AER IH (10:29)
[2024-03-08] MEDS ORDERED: METF-1211 PO (11:44)
[2024-03-08] MEDS ORDERED: FURO20 PO (11:44)
[2024-03-08] MEDS ORDERED: SODI100067 PO (11:44)
== END 2024-03-08 13:45 | disposition home health service (06) | DRG 189 ==
LOC: 2WR 19:13
PROVIDERS: ADMIT Physical Medicine & Rehabilitation; ATTEND Physical Medicine & Rehabilitation
DX: J96.21 Acute and chronic respiratory failure with hypoxia (principal); J18.9 Pneumonia, unspecified organism; L89.153 Pressure ulcer of sacral region, stage 3; I21.4 Non-ST elevation (NSTEMI) myocardial infarction; J44.0 Chronic obstructive pulmonary disease with (acute) lower respiratory infection; E44.0 Moderate protein-calorie malnutrition; N39.0 Urinary tract infection, site not specified; J81.1 Chronic pulmonary edema; Z16.12 Extended spectrum beta lactamase (ESBL) resistance; Z16.24 Resistance to multiple antibiotics; Z16.19 Resistance to other specified beta lactam antibiotics; E22.2 Syndrome of inappropriate secretion of antidiuretic hormone; J84.10 Pulmonary fibrosis, unspecified; R62.7 Adult failure to thrive; I10 Essential (primary) hypertension; E78.5 Hyperlipidemia, unspecified; E11.65 Type 2 diabetes mellitus with hyperglycemia; E11.21 Type 2 diabetes mellitus with diabetic nephropathy; F17.200 Nicotine dependence, unspecified, uncomplicated; I25.10 Atherosclerotic heart disease of native coronary artery without angina pectoris; H54.61 Unqualified visual loss, right eye, normal vision left eye; H43.11 Vitreous hemorrhage, right eye; I95.1 Orthostatic hypotension; Z68.21 Body mass index [BMI] 21.0-21.9, adult; E83.42 Hypomagnesemia; D64.9 Anemia, unspecified; B96.1 Klebsiella pneumoniae [K. pneumoniae] as the cause of diseases classified elsewhere; Z74.09 Other reduced mobility; R00.0 Tachycardia, unspecified; R79.89 Other specified abnormal findings of blood chemistry; Z20.822 Contact with and (suspected) exposure to COVID-19; Z66 Do not resuscitate; Z79.899 Other long term (current) drug therapy; Z82.49 Family history of ischemic heart disease and other diseases of the circulatory system; Z83.3 Family history of diabetes mellitus
CPT/HCPCS: 71046; 71250; 80048; 80053; 81001; 82533; 82962; 83735; 83935; 84100; 84300; 84443; 85025; 87081; 87086; 87186; 87635; 92523; 94640; 94667; 94668; 97110; 97116; 97162; 97167; 97530; 97535; 99366; G0238; J0696; J1650; J2185; J3475; J7050; 36415-L1; 36415-TC